=== PATIENT | male | born 1970 | race African-American/Black ===

== ENCOUNTER 2018-10-22 18:42 | Emergency (ER) | payer MEDICAID, OTHER ==
[~2018-10-22] VITALS: Ht 177.8 cm; Wt 74.8 kg
[2018-10-22 18:47] VITALS: BP 114/73
--- NOTE | 2018-10-22 18:57 | NUR ---
ED Nurse Note: Pt came in due to possible spider bite on his right chin started 2 days ago. No open wounds but pt states pus came out from it. Noted a papule like shape on right chin.
--- NOTE | 2018-10-22 19:05 | NUR ---
HAND-OFF: Report given to Majo NICE.
--- NOTE | 2018-10-22 19:15 | NUR ---
ED Nurse Note: RECIEVED REPORT FROM AM NRUSE TO RESUME CARE, PT IS SITTING IN CHAIRS, AWAKE, ALERT AND ORIENTED, PT HERE FOR POSSIBLE SPIDER BITE ON RIGHT CHIN AREA, PT IS WAITING TO BE SEEN BY MD, WILL RESUME CARE ORDERED, PT HAS NAD NOTED AT THIS TIME.
--- NOTE | 2018-10-22 19:41 | Emergency Room Report ---
History of Present Illness General Chief Complaint: Skin Rash/Abscess Source: Patient Present Illness HPI 47-year-old male with no significant past medical history here complaining of pain on the right mandible. He reports that 2 days ago he noticed a sharp pain feeling like an insect bite however did not see the insect and is suspecting a spider bite. Patient has been trying to push on the bite however has caused swelling. Pus drainage, fever, chills, tingling, numbness. Is rating the pain 3 out of 10 upon palpation of the affected area without radiation and has not taken any medication for pain. Denies chest pain, palpitation, nausea vomiting , no other associated symptoms. Allergies: Coded Allergies: No Known Allergies (Unverified , 10/22/18) Patient History Past Medical History: see triage record Past Surgical History: unable to obtain Pertinent Family History: none Immunizations: UTD Reviewed Nursing Documentation: PMH: Agreed; PSxH: Agreed Nursing Documentation-PMH Past Medical History: No Stated History Review of Systems All Other Systems: negative except mentioned in HPI Physical Exam Vital Signs Date Time Temp Pulse Resp B/P (MAP) Pulse Ox O2 Delivery O2 Flow Rate FiO2 10/22/18 18:47 98.4 79 18 114/73 94 Room Air Sp02 EP Interpretation: reviewed, normal General Appearance: normal inspection, well appearing, no apparent distress Head: normocephalic, atraumatic Eyes: bilateral eye normal inspection, bilateral eye PERRL ENT: normal ENT inspection, normal pharynx, no angioedema, other - Cyst on right mandible secondary to insect bite Neck: normal inspection, full range of motion, supple Respiratory: normal inspection, lungs clear, no rhonchi, no wheezing Cardiovascular #1: normal inspection, normal peripheral pulses, regular rate, rhythm, no murmur Gastrointestinal: normal inspection, soft Musculoskeletal: back normal, digits/nails normal, gait/station normal, other - Cyst on right mandible no pus drainage Neurologic: normal inspection, alert, oriented x3 Psychiatric: normal inspection, judgement/insight normal Skin: no rash, warm/dry, palpation normal, other - Infected cyst right mandible secondary to insect bite Lymphatic: normal inspection, no adenopathy Medical Decision Making PA Attestation All my diagnosis and treatment plans were reviewed ad discussed with my supervising physician Dr. Chacko Diagnostic Impression: Primary Impression: Insect bite, infected ER Course 47-year-old male with no significant past medical history here complaining of pain on the right mandible. He reports that 2 days ago he noticed a sharp pain feeling like an insect bite however did not see the insect and is suspecting a spider bite. Patient has been trying to push on the bite however has caused swelling. Pus drainage, fever, chills, tingling, numbness. Is rating the pain 3 out of 10 upon palpation of the affected area without radiation and has not taken any medication for pain. Denies chest pain, palpitation, nausea vomiting , no other associated symptoms. Ddx considered but are not limited to: infected insect bite, abscess, local noninfected insect bite Vital signs: are WNL, pt. is afebrile H&PE are most consistent with: infected insect bite ORDERS: keflex, ibuprofen. ED INTERVENTIONS: first dose of keflex as pt requested due to his pharmacy being closed at this hour DISCHARGE: At this time pt. is stable for d/c to home. Will provide printed patient care instructions, and any necessary prescriptions. Care plan and follow up instructions have been discussed with the patient prior to discharge. Due to location of the cyst no drainage necessary at this point as it is small enough to be taken care of with antibiotics however patient was advised to return to the emergency room if abscess formation or fever and chills. Last Vital Signs Date Time Temp Pulse Resp B/P (MAP) Pulse Ox O2 Delivery O2 Flow Rate FiO2 10/22/18 18:47 98.4 79 18 94 Room Air 10/22/18 18:47 114/73 Disposition: HOME, SELF-CARE Condition: Stable Scripts Ibuprofen* (MOTRIN*) 600 Mg Tablet 600 MG ORAL Q8H PRN for For Pain, #30 TAB 0 Refills Prov: Jesse Prabhakar 10/22/18 Cephalexin* (KEFLEX*) 500 Mg Capsule 500 MG ORAL EVERY 6 HOURS for 7 Days, #28 CAP Prov: Jesse Prabhakar 10/22/18 Referrals: [facility],REFERRING (PCP) Patient Instructions: Insect Bite, [id number] Additional Instructions: If increased swelling, abscess formation, fever chills return to the emergency room for drainage. With a primary care provider this point no drainage necessary as this is superficial cyst formation post spider bite and can be taken care of with antibiotic Jesse Prabhakar October 22, 2018 19:41
[2018-10-22] MEDS ORDERED: IBUPROFEN600 MG ORAL (19:42)
[2018-10-22] MEDS ORDERED: CEPHALEXIN500 MG ORAL (19:42)
[2018-10-22 19:45] VITALS: BP 121/78
[2018-10-22] MEDS ORDERED: Cephalexin 500mg cap ORAL ONE (19:45)
[2018-10-22 19:56] VITALS: BP 121/78
--- NOTE | 2018-10-22 19:56 | NUR ---
ER DISCHARGE NOTE: Patient is cleared to be discharged per ERMD, pt is aox4, on room air, with stable vital signs. pt was given dc and prescription instructions, pt was able to verbalize understanding, pt id band removed without complications. pt is able to ambulate with steady gait. pt took all belongings.
== END 2018-10-22 19:57 | disposition home or self-care (01) ==
LOC: EMR 19:22
DX: S00.86XA Insect bite (nonvenomous) of other part of head, initial encounter (principal); L08.9 Local infection of the skin and subcutaneous tissue, unspecified; W57.XXXA Bitten or stung by nonvenomous insect and other nonvenomous arthropods, initial encounter; Y92.9 Unspecified place or not applicable
CPT/HCPCS: 99282

== ENCOUNTER 2019-12-14 08:53 | Emergency (ER) | payer MEDICAID, OTHER ==
[~2019-12-14] VITALS: Ht 177.8 cm; Wt 72.6 kg
[~2019-12-14 08:53] MED LIST: CEPHALEXIN500 MG ORAL; IBUPROFEN600 MG ORAL
[2019-12-14 09:05] VITALS: BP 102/65
--- NOTE | 2019-12-14 09:05 | NUR ---
ED Nurse Note: Patient walked in to ED from home c/o left earache x2 days. Stated he feels something is moving in his ear. Denies discharges/ difficulty hearing. AAOx4, verbally responsive. No SOB. Afebrile. VSS.
--- NOTE | 2019-12-14 09:09 | Emergency Room Report ---
History of Present Illness General Chief Complaint: Earache Source: Patient Present Illness HPI 49-year-old male presents with left earache he feels as if something bit him he endorses a mild pain he describes the pain as something there no aggravating relieving factors no fevers no chills patient presents for evaluation Allergies: Coded Allergies: No Known Allergies (Unverified , 10/22/18) COVID-19 Screening Contact w/high risk pt: No Recent Travel to affected area: No Experienced COVID-19 symptoms?: No COVID-19 Testing performed RN HOME CARE: No Patient History Past Medical History: see triage record Reviewed Nursing Documentation: PMH: Agreed; PSxH: Agreed Nursing Documentation-PMH Past Medical History: No Stated History Review of Systems All Other Systems: negative except mentioned in HPI Physical Exam Vital Signs Date Time Temp Pulse Resp B/P (MAP) Pulse Ox O2 Delivery O2 Flow Rate FiO2 12/14/19 09:00 98.4 74 20 102/65 (77) 97 Room Air General Appearance: well appearing, no apparent distress Head: normocephalic, atraumatic ENT: normal ENT inspection, hearing grossly normal, normal voice, TMs + canals normal, other - Bilateral external ears unremarkable no evidence of cellulitis no erythema no drainage, ear canals are completely normal Neck: full range of motion, supple Respiratory: no respiratory distress, speaking full sentences Neurologic: alert, normal gait Psychiatric: mood/affect normal Skin: no rash Medical Decision Making Diagnostic Impression: Primary Impression: Earache, left ER Course [age]-year-old male presents with a left earache feels like something is there, TMs completely normal, outer ear normal, no evidence of cellulitis no erythema Patient given anticipatory guidance, he was instructed to return to the ED if it continues to worsen, no indications for antibiotics Last Vital Signs Date Time Temp Pulse Resp B/P (MAP) Pulse Ox O2 Delivery O2 Flow Rate FiO2 12/14/19 09:05 98.4 74 20 102/65 97 Room Air Condition: Stable Referrals: [facility] Chris Jimenez. [facility] Patient Instructions: Earache Additional Instructions: The patient was provided with discharge instructions, notified to follow-up with a primary care doctor and or specialist in the next 24-48 hours, and to return to the ED if they have worsening of their symptoms. Please note that this report is being documented using DRAGON technology. This can lead to erroneous entry secondary to incorrect interpretation by the dictating instrument. Guillermo Milan MD Dec 14, 2019 09:09
[2019-12-14 09:11] VITALS: BP 102/65
--- NOTE | 2019-12-14 09:11 | NUR ---
ED Nurse Note: Pt cleared by ERMD for discharge. DC instructions was given and explained to pt and verbalized understanding of teachings. All medical deviecs such as ID band removed. Pt is AAO x4, ambulatory and left with all personal belongings.
== END 2019-12-14 09:11 | disposition home or self-care (01) ==
LOC: EMR 09:05
DX: H92.02 Otalgia, left ear (principal)
CPT/HCPCS: 99281